=== PATIENT | female | born 1985 | race African-American/Black ===

== ENCOUNTER 2017-10-20 10:31 | Emergency (ER) | payer SELFPAY ==
[2017-10-20 10:47] VITALS: TEMP 98.2; BMI 29.2
[2017-10-20] MEDS ORDERED: ACETAMINOPHEN 1000 MG/100 ML VIAL (NON FORMULARY) IVPB ONE (13:03)
[2017-10-20] MEDS ORDERED: SODIUM CHLORIDE 1,000 ML IV STA (13:03)
[2017-10-20] MEDS ORDERED: ACETAMINOPHEN INJECTION 100 ML IVPB ONE (13:08)
[2017-10-20 13:14] LABS: URINE APPEARANCE SLCLOUDY; URINE BILIRUBIN NEGATIVE (NEGATIVE); URINE BLOOD NEGATIVE (NEGATIVE); URINE COLOR LTYELLOW; URINE GLUCOSE (UA) NEGATIVE (NEGATIVE); URINE KETONE NEGATIVE (NEGATIVE); URINE NITRITE NEGATIVE (NEGATIVE); URINE PROTEIN NEGATIVE (NEGATIVE); URINE UROBILINOGEN NEGATIVE mg/dL (0.2-1.0)
[2017-10-20 13:30] LABS: BASOPHIL 0.8 % (0-2.0); MCH 29.3 pg (25.7-33.7); MCHC 33.2 g/dl (32.0-36.0); MEAN CELL VOLUME 88.2 fl (80-96); MEAN PLT VOLUME 8.5 fl (7.5-11.1); NEUTROPHILS 63.6 % (42.8-82.8); PLATELET COUNT 270 K/MM3 (134-434); RDW 14.8 % (11.6-15.6)
[2017-10-20 13:56] LABS: ALBUMIN 4.1 g/dl (3.4-5.0); ANION GAP 7 (8-16); BILIRUBIN,TOTAL 0.4 mg/dL (0.2-1.0); CALCIUM 8.9 mg/dL (8.5-10.1); CO2 29 mmol/L (21-32); CREATININE 0.7 mg/dL (0.55-1.02); GLUCOSE,RANDOM 87 mg/dL (74-106); SGOT/AST 9 U/L (15-37); SGPT/ALT 15 U/L (12-78); TOT PROT 7.8 g/dl (6.4-8.2)
[2017-10-20 13:57] LABS: ALK PHOS 125 U/L (45-117)
[2017-10-20] MEDS ORDERED: KETOROLAC TROMETHAMINE 30 MG/1 ML VIAL IVPUSH ONE (14:26)
--- NOTE | 2017-10-20 14:26 | PDOC ---
History of Present Illness - General History Source: Patient Exam Limitations: No Limitations <Erick Gutiérrez - Last Filed: 10/20/17 14:29> - History of Present Illness Initial Comments: 10/20/17 14:38 32 year old female , with significant past medical history of recurrent pulmonary emboli (most recent was 11 months ago, pt reports noncompliance with Coumadin over the past week), abdominal hernia, asthma, anemia and sickle cell trait, who presents to the emergency room complaining of suprapubic pain and nausea that started yesterday. She notes that the pain is crampy in quality. She does not know the exact day of her LMP, but states that it was last month. Denies vaginal bleeding, discharge, foul odor. Denies chest pain, SOB. Denies diarrhea, recent illness. Allergies: NKDA, orange juice Surgical hx: 4C-sections <Daria Enamorado - Last Filed: 10/20/17 14:39> - General Chief Complaint: Pain Stated Complaint: ABD PAIN, NAUSEA Time Seen by Provider: 10/20/17 12:29 Past History - Past Medical History Asthma: Yes COPD: No Other medical history: PE, SICKLE CELL TRAIT - Reproductive History Is Patient Now?: (unsure) Para: 5 - Suicide/Smoking/Psychosocial Hx Smoking History: Never smoked Information on smoking cessation initiated: No Hx Alcohol Use: No Drug/Substance Use Hx: No Substance Use Type: None <Erick Gutiérrez - Last Filed: 10/20/17 14:29> <Daria Enamorado - Last Filed: 10/20/17 14:39> - Past Medical History Allergies/Adverse Reactions: Allergies Allergy/AdvReac Type Severity Reaction Status Date / Time orange juice Allergy Verified 10/20/17 10:47 Home Medications: Ambulatory Orders Ibuprofen [Motrin -] 600 mg PO QID PRN #28 tablet 10/20/17 Warfarin Sodium [Coumadin] 5 mg PO DAILY 10/20/17 Review of Systems - Review of Systems Able to Perform ROS?: Yes Comments:: 10/20/17 14:38 GENERAL/CONSTITUTIONAL: No fever or chills. No weakness. HEAD, EYES, EARS, NOSE AND THROAT: No change in vision. No ear pain or discharge. No sore throat. CARDIOVASCULAR: No chest pain or shortness of breath. RESPIRATORY: No cough, wheezing, or hemoptysis. GASTROINTESTINAL: +subprapubic pain and nausea. No vomiting, diarrhea or constipation. GENITOURINARY: No dysuria, frequency, or change in urination. MUSCULOSKELETAL: No joint or muscle swelling or pain. No neck or back pain. SKIN: No rash NEUROLOGIC: No headache, vertigo, loss of consciousness, or change in strength/ sensation. ENDOCRINE: No increased thirst. No abnormal weight change. HEMATOLOGIC/LYMPHATIC: No anemia, easy bleeding, or history of blood clots. ALLERGIC/IMMUNOLOGIC: No hives or skin allergy. <Daria Enamorado - Last Filed: 10/20/17 14:39> *Physical Exam - Vital Signs Last Vital Signs Temp Pulse Resp BP Pulse Ox 98.2 F 77 19 119/79 98 10/20/17 10:45 10/20/17 10:45 10/20/17 10:45 10/20/17 10:45 10/20/17 10:45 <Erick Gutiérrez - Last Filed: 10/20/17 14:29> - Vital Signs Last Vital Signs Temp Pulse Resp BP Pulse Ox 98.2 F 77 19 119/79 98 10/20/17 10:45 10/20/17 10:45 10/20/17 10:45 10/20/17 10:45 10/20/17 10:45 - Physical Exam Comments: 10/20/17 14:39 GENERAL: Awake, alert, and fully oriented, in no acute distress HEAD: No signs of trauma EYES: PERRLA, EOMI, sclera anicteric, conjunctiva clear ENT: Auricles normal inspection, hearing grossly normal, nares patent, oropharynx clear without exudates. Moist mucosa NECK: Normal ROM, supple, no lymphadenopathy, JVD, or masses LUNGS: Breath sounds equal, clear to auscultation bilaterally. No wheezes, and no crackles HEART: Regular rate and rhythm, normal S1 and S2, no murmurs, rubs or gallops ABDOMEN: Soft, nontender, normoactive bowel sounds. No guarding, no rebound. No masses EXTREMITIES: Normal range of motion, no edema. No clubbing or cyanosis. No cords, erythema, or tenderness NEUROLOGICAL: Cranial nerves II through XII grossly intact. Normal speech, normal gait SKIN: Warm, Dry, normal turgor, no rashes or lesions noted. <Daria Enamorado - Last Filed: 10/20/17 14:39> ED Treatment Course - LABORATORY CBC & Chemistry Diagram: 10/20/17 13:20 10/20/17 13:20 - ADDITIONAL ORDERS Additional order review: Laboratory Results 10/20/17 10/20/17 13:20 13:00 Sodium 142 Potassium 4.0 Chloride 106 Carbon Dioxide 29 Anion Gap 7 L BUN 11 Creatinine 0.7 Creat Clearance w eGFR > 60 Random Glucose 87 Calcium 8.9 Total Bilirubin 0.4 AST 9 L D ALT 15 D Alkaline Phosphatase 125 H D Total Protein 7.8 Albumin 4.1 Lipase 112 Urine Color Ltyellow Urine Appearance Slcloudy Urine pH 5.0 D Ur Specific [place] 1.012 Urine Protein Negative Urine Glucose (UA) Negative Urine Ketones Negative Urine Blood Negative Urine Nitrite Negative Urine Bilirubin Negative Urine Urobilinogen Negative Urine HCG, Qual Negative 10/20/17 13:20 RBC 4.23 MCV 88.2 MCHC 33.2 RDW 14.8 MPV 8.5 Neutrophils % 63.6 Lymphocytes % 28.7 D Monocytes % 4.9 Eosinophils % 2.0 Basophils % 0.8 - Medications Given in the ED: ED Medications Discontinued Medications Generic Name Dose Route Start Last Admin Trade Name Ez PRN Reason Stop Dose Admin Acetaminophen 1,000 mg 10/20/17 13:03 10/20/17 13:24 Ofirmev Injection - IVPB 10/20/17 13:04 1,000 mg ONCE ONE Administration Sodium Chloride 1,000 mls @ 1,000 mls/hr 10/20/17 13:03 10/20/17 13:24 Normal Saline - IV 10/20/17 14:02 1,000 mls/hr ASDIR STA Administration <Erick Gutiérrez - Last Filed: 10/20/17 14:29> - LABORATORY CBC & Chemistry Diagram: 10/20/17 13:20 10/20/17 13:20 - ADDITIONAL ORDERS Additional order review: Laboratory Results 10/20/17 10/20/17 13:20 13:00 Sodium 142 Potassium 4.0 Chloride 106 Carbon Dioxide 29 Anion Gap 7 L BUN 11 Creatinine 0.7 Creat Clearance w eGFR > 60 Random Glucose 87 Calcium 8.9 Total Bilirubin 0.4 AST 9 L D ALT 15 D Alkaline Phosphatase 125 H D Total Protein 7.8 Albumin 4.1 Lipase 112 Urine Color Ltyellow Urine Appearance Slcloudy Urine pH 5.0 D Ur Specific [place] 1.012 Urine Protein Negative Urine Glucose (UA) Negative Urine Ketones Negative Urine Blood Negative Urine Nitrite Negative Urine Bilirubin Negative Urine Urobilinogen Negative Urine HCG, Qual Negative 10/20/17 13:20 RBC 4.23 MCV 88.2 MCHC 33.2 RDW 14.8 MPV 8.5 Neutrophils % 63.6 Lymphocytes % 28.7 D Monocytes % 4.9 Eosinophils % 2.0 Basophils % 0.8 - Medications Given in the ED: ED Medications Discontinued Medications Generic Name Dose Route Start Last Admin Trade Name Freq PRN Reason Stop Dose Admin Acetaminophen 1,000 mg 10/20/17 13:03 10/20/17 13:24 Ofirmev Injection - IVPB 10/20/17 13:04 1,000 mg ONCE ONE Administration Sodium Chloride 1,000 mls @ 1,000 mls/hr 10/20/17 13:03 10/20/17 13:24 Normal Saline - IV 10/20/17 14:02 1,000 mls/hr ASDIR STA Administration <Daria Enamorado - Last Filed: 10/20/17 14:39> Medical Decision Making - Medical Decision Making 10/20/17 14:20 A portion of this note was documented by scribe services under my direction. I have reviewed the details of the note, within reason, and agree with the documentation with the following case summary and management plan written by me. Patient treated in the ED. Nursing notes are reviewed and incorporated into the medical decision-making. Vital signs reviewed. Peripheral IV access obtained by the nurse, laboratory studies are drawn and sent, reviewed and interpreted by myself. Vital Signs Temp Pulse Resp BP Pulse Ox 98.2 F 77 19 119/79 98 10/20/17 10:45 10/20/17 10:45 10/20/17 10:45 10/20/17 10:45 10/20/17 10:45 32-year-old female with past medical history of pulmonary embolism intermittently adherent to her Coumadin presents with abdominal pain since yesterday. The patient reports that her pulmonary embolus and history is complicated. States that when she is , she has developed recurrent pulmonary I will was observed DVTs. She has been on intermittent heparin and Lovenox. States has been intermittently adherent to Coumadin. States since yesterday she has been having a vague suprapubic discomfort but without dysuria , nausea, vomiting, fevers, chills. Has tolerated by mouth. CBC, BMP 10/20/17 13:20 10/20/17 13:20 CMP Sodium 142 mmol/L (136-145) 10/20/17 13:20 Potassium 4.0 mmol/L (3.5-5.1) 10/20/17 13:20 Chloride 106 mmol/L (98-107) 10/20/17 13:20 Carbon Dioxide 29 mmol/L (21-32) 10/20/17 13:20 Anion Gap 7 (8-16) L 10/20/17 13:20 BUN 11 mg/dL (7-18) 10/20/17 13:20 Creatinine 0.7 mg/dL (0.55-1.02) 10/20/17 13:20 Creat Clearance w eGFR > 60 (>60) 10/20/17 13:20 Random Glucose 87 mg/dL (74-106) 10/20/17 13:20 Calcium 8.9 mg/dL (8.5-10.1) 10/20/17 13:20 Total Bilirubin 0.4 mg/dL (0.2-1.0) 10/20/17 13:20 AST 9 U/L (15-37) L D 10/20/17 13:20 ALT 15 U/L (12-78) D 10/20/17 13:20 Alkaline Phosphatase 125 U/L (45-117) H D 10/20/17 13:20 Total Protein 7.8 g/dl (6.4-8.2) 10/20/17 13:20 Albumin 4.1 g/dl (3.4-5.0) 10/20/17 13:20 Lipase 112 U/L (73-393) 10/20/17 13:20 Urine Test Results Urine Color Ltyellow 10/20/17 13:00 Urine Appearance Slcloudy 10/20/17 13:00 Urine pH 5.0 (5.0-8.0) D 10/20/17 13:00 Ur Specific [place] 1.012 (1.001-1.035) 10/20/17 13:00 Urine Protein Negative (NEGATIVE) 10/20/17 13:00 Urine Glucose (UA) Negative (NEGATIVE) 10/20/17 13:00 Urine Ketones Negative (NEGATIVE) 10/20/17 13:00 Urine Blood Negative (NEGATIVE) 10/20/17 13:00 Urine Nitrite Negative (NEGATIVE) 10/20/17 13:00 Urine Bilirubin Negative (NEGATIVE) 10/20/17 13:00 Preliminary leukocyte esterase: negative It is unclear what the etiology abdominal pain is. Upon reassessment after the blood tests, the patient has no abdominal tenderness. I do not think that this is an ovarian torsion. I do not think this is appendicitis or bowel obstruction. It is possible that this may be an ovarian cyst. However, I will refer the patient to an outpatient manager of product for outpatient workup. I gave her return precautions if symptoms worsen. I discussed the physical exam findings, ancillary test results and final diagnoses with the patient. I answered all of the patient's questions. The patient was satisfied with the care received and felt comfortable with the discharge plan and treatment plan. The patient will call their primary care physician within 24 hours to arrange follow-up and will return to the Emergency Department with any new, persistant or worsening symptoms. <Erick Gutiérrez - Last Filed: 10/20/17 14:29> *DC/Admit/Observation/Transfer - Discharge Dispostion Admit: No <Erick Gutiérrez - Last Filed: 10/20/17 14:29> - Attestations Scribe Attestion: 10/20/17 14:39 Documentation prepared by MARIA DE JESUS Hay, acting as medical affairs specialist for Erick Gutiérrez MD. <Daria Enamorado - Last Filed: 10/20/17 14:39> Diagnosis at time of Disposition: Abdominal pain Qualifiers: Abdominal location: unspecified location Qualified Code(s): R10.9 - Unspecified abdominal pain - Discharge Dispostion Disposition: HOME Condition at time of disposition: Improved - Prescriptions Prescriptions: Ibuprofen [Motrin -] 600 mg PO QID PRN #28 tablet PRN Reason: Pain - Referrals Referrals: Jd Vang MD [Staff Physician] - Aleisha Yoder MD [Staff Physician] - Andrews Chadwick MD [Staff Physician] - Alistair Valencia MD [Staff Physician] - - Patient Instructions Printed Discharge Instructions: DI for Abdominal Pain-Adult Additional Instructions: Please follow up with your doctors. Make an appointment with an back tender insulation board doctor. Call to schedule an appointment.
[2017-10-20] MEDS ORDERED: KETOROLAC TROMETHAMINE 30 MG/1 ML VIAL ONE (14:39)
[2017-10-20 14:51] VITALS: BP 118/72; PULSE 68
[2017-10-20 16:45] LABS: URINE LEUK ESTERASE Negative (NEGATIVE)
== END 2017-10-20 14:52 | disposition home or self-care (01) ==
LOC: JER 10:31
PROC: 3E033NZ Introduction of Analgesics, Hypnotics, Sedatives into Peripheral Vein, Percutaneous Approach (ICD-10-PCS; principal; 2017-10-20)
PROC: 3E0333Z Introduction of Anti-inflammatory into Peripheral Vein, Percutaneous Approach (ICD-10-PCS; 2017-10-20)
DX: R10.9 Unspecified abdominal pain (principal); J45.909 Unspecified asthma, uncomplicated; D57.3 Sickle-cell trait
CPT/HCPCS: 36415; 80053; 81003; 83690; 84703; 85025; 87086; 99282-25

== ENCOUNTER 2017-10-27 20:48 | Emergency (ER) | payer OTHER ==
[2017-10-27 21:00] VITALS: BMI 29.2
[2017-10-27 21:12] LABS: URINE APPEARANCE SLCLOUDY; URINE BILIRUBIN NEGATIVE (NEGATIVE); URINE BLOOD NEGATIVE (NEGATIVE); URINE COLOR LTYELLOW; URINE GLUCOSE (UA) NEGATIVE (NEGATIVE); URINE KETONE NEGATIVE (NEGATIVE); URINE NITRITE NEGATIVE (NEGATIVE); URINE PROTEIN NEGATIVE (NEGATIVE)
--- NOTE | 2017-10-27 23:20 | PDOC ---
History of Present Illness - General Chief Complaint: Pain Stated Complaint: LOWER ABD PAIN Time Seen by Provider: 10/27/17 23:20 - History of Present Illness Initial Comments: 10/28/17 00:55 Ms. Andrade is a 32 yo w/ significant pmh of recurrent PE (most recent 11 months ago) on coumadin (which she often forgets to take), abdominal hernia, asthma, anemia, and sickle cell trait who presents complaining of suprapubic pain and nausea since thanksgi. She reports that this pain comes and goes and cannot relate it to any food, stress, or any other factor. She reports that her LMP was last month. She had previously presented for this same complaint on the of last month but says that her PCP told her to return if she was having continued symptoms. She denies vaginal bleeding, discharge, foul odor, chest pain, shortness of breath diarrhea, and fevers/chills. Past History - Past Medical History Allergies/Adverse Reactions: Allergies Allergy/AdvReac Type Severity Reaction Status Date / Time orange juice Allergy Verified 10/27/17 20:58 Home Medications: Ambulatory Orders Warfarin Sodium [Coumadin] 5 mg PO DAILY 10/20/17 Anemia: Yes (sickle cell trait) Asthma: Yes COPD: No Other medical history: pulmonary embolism /2015 - Reproductive History Para: 5 - Suicide/Smoking/Psychosocial Hx Smoking History: Never smoked Hx Alcohol Use: No Drug/Substance Use Hx: No Substance Use Type: None Review of Systems - Review of Systems Comments:: 10/28/17 00:53 GENERAL/CONSTITUTIONAL: No fever or chills. No weakness. HEAD, EYES, EARS, NOSE AND THROAT: No change in vision. No ear pain or discharge. No sore throat. CARDIOVASCULAR: No chest pain or shortness of breath RESPIRATORY: No cough, wheezing, or hemoptysis. GASTROINTESTINAL: No nausea, vomiting, diarrhea or constipation. GENITOURINARY: Pain as described suprapubic region. MUSCULOSKELETAL: No joint or muscle swelling or pain. No neck or back pain. SKIN: No rash NEUROLOGIC: No headache, vertigo, loss of consciousness, or change in strength/ sensation. ENDOCRINE: No increased thirst. No abnormal weight change HEMATOLOGIC/LYMPHATIC: No anemia, easy bleeding, or history of blood clots. ALLERGIC/IMMUNOLOGIC: No hives or skin allergy. *Physical Exam - Vital Signs Last Vital Signs Temp Pulse Resp BP Pulse Ox 98.1 F 65 18 119/83 100 10/27/17 20:58 10/27/17 20:58 10/27/17 20:58 10/27/17 20:58 10/27/17 20:58 - Physical Exam Comments: 10/28/17 00:58 GENERAL: Awake, alert, and fully oriented, in no acute distress HEAD: No signs of trauma, normocephalic, atraumatic EYES: PERRLA, EOMI, sclera anicteric, conjunctiva clear ENT: Auricles normal inspection, hearing grossly normal, nares patent, oropharynx clear without exudates. Moist mucosa NECK: Normal ROM, supple, no lymphadenopathy, JVD, or masses LUNGS: No distress, speaks full sentences, clear to auscultation bilaterally HEART: Regular rate and rhythm, normal S1 and S2, no murmurs, rubs or gallops, peripheral pulses normal and equal bilaterally. ABDOMEN: Soft, nontender, normoactive bowel sounds. No guarding, no rebound. No masses EXTREMITIES: Normal inspection, Normal range of motion, no edema. No clubbing or cyanosis. NEUROLOGICAL: Cranial nerves II through XII grossly intact. Normal speech, normal gait, no focal sensorimotor deficits SKIN: Warm, Dry, normal turgor, no rashes or lesions noted. : Yeast infection noted on exam. No CMT, masses, or adnexal tenderness. ED Treatment Course - LABORATORY CBC & Chemistry Diagram: 10/28/17 00:52 10/28/17 00:52 - ADDITIONAL ORDERS Additional order review: Laboratory Results 10/27/17 21:05 Urine Color Ltyellow Urine Appearance Slcloudy Urine pH 6.0 Ur Specific [place] 1.010 Urine Protein Negative Urine Glucose (UA) Negative Urine Ketones Negative Urine Blood Negative Urine Nitrite Negative Urine Bilirubin Negative Urine Urobilinogen 2.0 H Urine HCG, Qual Negative Medical Decision Making - Medical Decision Making 10/28/17 02:29 Ms. Andrade represents for vague symptoms of intermittent pelvic pain. Labs grossly wnl, pelvic exam revealed yeast infection (treated with diflucan in ER) . Pelvic US negative for acute findings. Patient instructed to f/u with [facility] for further care. Patient verbalized understanding and will comply. *DC/Admit/Observation/Transfer Diagnosis at time of Disposition: Yeast infection - Discharge Dispostion Disposition: HOME - Referrals Referrals: STAFF,NOT ON [Primary Care Provider] - Aleisha Yoder MD [Staff Physician] - - Patient Instructions Printed Discharge Instructions: DI for Vaginal Yeast Infection Additional Instructions: Please follow-up with [facility] as discussed. Return to ER if any increase in pain , fever, nausea, or other concerning symptoms. - Post Discharge Activity
--- NOTE | 2017-10-27 23:54 | PDOC ---
Attending Attestation - Resident Resident Name: Glenn Martinez - ED Attending Attestation I have performed the following: I have examined & evaluated the patient, The case was reviewed & discussed with the resident, I agree w/resident's findings & plan, Exceptions are as noted - HPI HPI: 10/27/17 23:51 32yo F , DVT c/b PE x3 on coumadin (intermittently compliant), asthma, anemia, sickle cell trait p/w suprapubic pain since thanksgiving. Pain a/w nausea, no vomiting. Pain is intermittent, only midline. Pt was seen here 1 week ago for the same, had a negative UA and negative UPT. Called PCP who
[2017-10-28 00:59] LABS: BASOPHIL 0.8 % (0-2.0); EOSINOPHIL 2.2 % (0-4.5); MCHC 33.9 g/dl (32.0-36.0); MEAN CELL VOLUME 88.5 fl (80-96); MEAN PLT VOLUME 8.5 fl (7.5-11.1); NEUTROPHILS 50.3 % (42.8-82.8); PLATELET COUNT 260 K/MM3 (134-434); RDW 14.7 % (11.6-15.6); WHITE BLOOD COUNT 8.6 K/mm3 (4.0-10.0)
[2017-10-28 01:24] LABS: ALBUMIN 3.9 g/dl (3.4-5.0); ANION GAP 7 (8-16); BILIRUBIN,TOTAL 0.6 mg/dL (0.2-1.0); CO2 31 mmol/L (21-32); CREATININE 0.9 mg/dL (0.55-1.02); GLUCOSE,RANDOM 81 mg/dL (74-106); SGOT/AST 6 U/L (15-37); SGPT/ALT 16 U/L (12-78); TOT PROT 7.3 g/dl (6.4-8.2)
[2017-10-28 01:25] LABS: ALK PHOS 114 U/L (45-117)
[2017-10-28] MEDS ORDERED: FLUCONAZOLE 100 MG TABLET (UD) PO ONE (02:09)
[2017-10-28] MEDS ORDERED: FLUCONAZOLE 100 MG TABLET (UD) ONE (02:15)
[2017-10-28 03:11] VITALS: BP 120/80; PULSE 80; TEMP 98.2
[2017-10-28 11:13] LABS: URINE LEUK ESTERASE Negative (NEGATIVE)
== END 2017-10-28 03:12 | disposition home or self-care (01) ==
LOC: JER 20:48
DX: B37.9 Candidiasis, unspecified (principal); Z86.711 Personal history of pulmonary embolism; Z79.01 Long term (current) use of anticoagulants; J45.909 Unspecified asthma, uncomplicated; D64.9 Anemia, unspecified; D57.3 Sickle-cell trait
CPT/HCPCS: 36415; 76856-TC; 80053; 81003; 83690; 84703; 85025; 99283-25

== ENCOUNTER 2018-04-10 09:06 | Emergency (ER) | payer OTHER ==
[2018-04-10 09:19] VITALS: TEMP 98.5; BMI 28.0
--- NOTE | 2018-04-10 09:45 | PDOC ---
History of Present Illness - General History Source: Patient Exam Limitations: No Limitations - History of Present Illness Initial Comments: CHIEF COMPLAINT: 32 y/o afebrile female with PMH recurrent UTIs, bacterial vaginosis and yeast infections c/o dysuria and thin vaginal discharge x 1 week. HISTORY OF PRESENT ILLNESS: The patient admits she has had these recurrent infections for years, all with the same sexual partner. Both have been tested numerous times in the past for STDs and are always negative. She states they had sex 1 week ago and since that time she has had symptoms. She denies fever, chills, n/v/d, CP, SOB, back pain. She has seen multiple doctors over the years and nothing seems to help. Vital signs on arrival are within normal limits. REVIEW OF SYSTEMS: GENERAL/CONSTITUTIONAL: no fever/chills. No weakness. No weight change. GASTROINTESTINAL: See history of present illness. GENITOURINARY: +dysuria and thin watery vaginal discharge. MUSCULOSKELETAL: No joint or muscle swelling or pain. No neck or back pain. SKIN: No rash or easy bruising. NEUROLOGIC: No headache, vertigo, loss of consciousness, or loss of sensation. PHYSICAL EXAM: GENERAL: The patient is awake, alert, and fully oriented, in no acute distress. ABDOMEN: Soft, non-distended, minimal suprapubic TTP. VAGINAL: DEFERRED EXTREMITIES: Normal range of motion, no edema. NEUROLOGICAL: Normal speech, normal gait. CN II-XII grossly intact. SKIN: Warm, dry, normal turgor, no rashes or lesions noted. <Norma Humphrey - Last Filed: 04/10/18 11:41> <Aston Naylor - Last Filed: 04/13/18 07:14> - General Chief Complaint: Pain Stated Complaint: LOWER ABD CRAMPING Time Seen by Provider: 04/10/18 09:25 Past History - Past Medical History Anemia: Yes (sickle cell trait) Asthma: Yes COPD: No - Reproductive History Para: 5 - Immunization History Immunization Up to Date: Yes - Suicide/Smoking/Psychosocial Hx Smoking History: Never smoked Hx Alcohol Use: No Drug/Substance Use Hx: No Substance Use Type: None <Norma Humphrey - Last Filed: 04/10/18 11:41> <Aston Naylor - Last Filed: 04/13/18 07:14> - Past Medical History Allergies/Adverse Reactions: Allergies Allergy/AdvReac Type Severity Reaction Status Date / Time orange juice Allergy Verified 04/10/18 09:16 Home Medications: Ambulatory Orders Warfarin Sodium [Coumadin] 5 mg PO DAILY 10/20/17 Fluconazole [Diflucan] 150 mg PO ONCE #1 tablet 04/10/18 Metronidazole 500 mg PO TID #21 tablet 04/10/18 Nitrofurantoin Monohyd/M-Cryst [Macrobid -] 100 mg PO BID #14 capsule 04/10/18 metroNIDAZOLE [Flagyl -] 500 mg PO ASDIR 04/10/18 *Physical Exam - Vital Signs Last Vital Signs Temp Pulse Resp BP Pulse Ox 98.5 F 80 16 112/52 99 04/10/18 09:10 04/10/18 09:10 04/10/18 09:10 04/10/18 09:10 04/10/18 09:10 <Norma Humphrey - Last Filed: 04/10/18 11:41> - Vital Signs Last Vital Signs Temp Pulse Resp BP Pulse Ox 98.5 F 63 16 101/66 100 04/10/18 09:10 04/10/18 11:51 04/10/18 09:10 04/10/18 11:51 04/10/18 11:51 <Aston Naylor - Last Filed: 04/13/18 07:14> Moderate Sedation - Procedure Monitoring Vital Signs: Vital Signs Temp Pulse Resp BP Pulse Ox 98.5 F 63 16 101/66 100 04/10/18 09:10 04/10/18 11:51 04/10/18 09:10 04/10/18 11:51 04/10/18 11:51 <Aston Naylor - Last Filed: 04/13/18 07:14> ED Treatment Course - ADDITIONAL ORDERS Additional order review: 04/10/18 10:43 Urine Culture - Final Urine - Urine Clean Catch Escherichia Coli <Aston Naylor - Last Filed: 04/13/18 07:14> Medical Decision Making - Medical Decision Making A/P: 32 y/o female with symptoms of UTI and BV. Plan is as follows: 1. UA/culture/hcg 2. GC/chlamydia UA 2+ leuks, 105 WBCs Will treat for UTI. Will also treat for BV Will send rx for diflucan as patient admits to normally getting a yeast infection after treating UTI. patient instructed to f/u with her doctor, drink plenty of fluids and take probiotic to help with symptoms. The patient verbalizes understanding of all instructions, has no further questions and is awaiting discharge. <Norma Humphrey - Last Filed: 04/10/18 11:41> - Medical Decision Making 04/13/18 07:10 The patient was seen and evaluated in conjunction with MICHELE Humphrey under my direct supervision, ancillary studies were reviewed. I agree with the plan as outlined by MICHELE Humphrey . <Aston Naylor - Last Filed: 04/13/18 07:14> *DC/Admit/Observation/Transfer <Norma Humphrey - Last Filed: 04/10/18 11:41> <Astno Naylor - Last Filed: 04/13/18 07:14> Diagnosis at time of Disposition: Bacterial vaginosis UTI (urinary tract infection) Qualifiers: Urinary tract infection type: acute cystitis Hematuria presence: with hematuria Qualified Code(s): N30.01 - Acute cystitis with hematuria - Discharge Dispostion Disposition: HOME Condition at time of disposition: Good - Prescriptions Prescriptions: Fluconazole [Diflucan] 150 mg PO ONCE #1 tablet Metronidazole 500 mg PO TID #21 tablet Nitrofurantoin Monohyd/M-Cryst [Macrobid -] 100 mg PO BID #14 capsule - Patient Instructions Printed Discharge Instructions: DI for Urinary Tract Infection (UTI), DI for Bacterial Vaginosis Additional Instructions: Discharge Instructions: -You have a urinary tract infection -You have symptoms of bacteria vaginosis -3 prescriptions have been sent to your pharmacy; one is for a yeast infection, should you develop one -Please drink at least 64oz of water daily -Start eating yogurt with probiotics or take a probiotic supplement to possible help with recurrent infections -Follow up with your doctor in 1 week -Return to the ER with any worsening or concerning symptoms
[2018-04-10 11:10] LABS: URINE APPEARANCE CLEAR; URINE BILIRUBIN NEGATIVE (<2.0 mg/dL); URINE COLOR LTYELLOW; URINE GLUCOSE (UA) NEGATIVE (NEGATIVE); URINE KETONE NEGATIVE (NEGATIVE); URINE NITRITE NEGATIVE (NEGATIVE); URINE PROTEIN NEGATIVE (NEGATIVE); URINE UROBILINOGEN NEGATIVE mg/dL (0.2-1.0)
[2018-04-10 11:14] LABS: HCG,QUALITATIVE URINE NEGATIVE
[2018-04-10 11:24] LABS: URINE LEUK ESTERASE 2+ (NEGATIVE)
[2018-04-10 11:28] LABS: EPI CELLS RARE /HPF (FEW)
[2018-04-10 11:55] VITALS: BP 101/66; PULSE 63
== END 2018-04-10 11:55 | disposition home or self-care (01) ==
LOC: JER 09:06
DX: N76.0 Acute vaginitis (principal); N30.01 Acute cystitis with hematuria; J45.909 Unspecified asthma, uncomplicated
CPT/HCPCS: 36415; 81003; 81015; 84703; 87086; 87186; 87491; 87591; 99282-25

== ENCOUNTER 2018-11-24 23:33 | Emergency (ER) | payer SELFPAY ==
[2018-11-24 23:45] VITALS: BP 106/59; PULSE 71; TEMP 98.7; BMI 30.5
[2018-11-25] MEDS ORDERED: SODIUM CHLORIDE 0.9% 500 ML INFUS.BAG IV ONE (00:39)
[2018-11-25 01:22] LABS: BASO % 0.5 % (0-2.0); EOS % 1.3 % (0-4.5); HEMATOCRIT 31.4 % (32.4-45.2); HEMOGLOBIN 11.1 GM/dL (10.7-15.3); LYMPH % 26.8 % (8-40); MCH 29.9 pg (25.7-33.7); MCHC 35.5 g/dl (32.0-36.0); MEAN CELL VOLUME 84.3 fl (80-96); MEAN PLT VOLUME 8.5 fl (7.5-11.1); NEUT % 66.4 % (42.8-82.8); PLATELET COUNT 320 K/MM3 (134-434); RBC 3.72 M/mm3 (3.60-5.2); RDW 14.7 % (11.6-15.6); WHITE BLOOD COUNT 7.6 K/mm3 (4.0-10.0)
[2018-11-25 01:26] LABS: URINE APPEARANCE CLEAR; URINE BILIRUBIN NEGATIVE (<2.0 mg/dL); URINE COLOR STRAW; URINE GLUCOSE (UA) NEGATIVE (NEGATIVE); URINE KETONE NEGATIVE (NEGATIVE); URINE LEUK ESTERASE NEGATIVE (NEGATIVE); URINE NITRITE NEGATIVE (NEGATIVE); URINE PROTEIN NEGATIVE (NEGATIVE); URINE UROBILINOGEN NEGATIVE mg/dL (0.2-1.0)
[2018-11-25] MEDS ORDERED: KETOROLAC TROMETHAMINE 15 MG/ML VIAL IVPUSH ONE (01:28)
[2018-11-25] MEDS ORDERED: KETOROLAC TROMETHAMINE 15 MG/ML VIAL ONE (01:34)
--- NOTE | 2018-11-25 01:35 | PDOC ---
History of Present Illness - General Chief Complaint: Pain Stated Complaint: ABD PAIN Time Seen by Provider: 11/25/18 00:38 History Source: Patient - History of Present Illness Initial Comments: 11/25/18 01:30 33 YOF with h/o PE not on AC anymore, sickle cell trait presenting with suprapubic AP, Left lower pelvic pain a/w dysuria, urgency and frequency x 3 days. +nausea and dizziness. tolerating PO and fluid intake. no back pain/f/c, vomiting or diarrhea. LMP 1 week ago. sexually active with . Takes ASA for prevention. no tobacco, ETOH or drug use. PSH: . ROS: Constitutional: no fever or chills. HEENT: no headache. +dizziness CVS: no cp or syncope. Resp: no sob. Gastrointestinal: +abdominal pain,+ nausea +pelvic pain. no vomiting or diarrhea. Genitourinary: +pelvic pain, dysuria, urgency, frequency, vaginal discharge; no bleeding MUSCULOSKELETAL: No joint pain and swelling. No neck or back pain. SKIN: no redness or skin changes, no discharge, no rash. No wounds. Hematologic: no easy bruising/bleeding. HEMATOLOGIC/LYMPHATIC: No anemia, easy bruising/bleeding, or history of blood clots. NEUROLOGIC: No headache, dizziness, LOC or altered mental status. No weakness, numbness or tingling. Allergic/Immunologic: no allergies All other systems reviewed and negative, or as documented in HPI. PHYSICAL Exam: General: Well appearing, awake and alert, NAD. HEENT: NCAT, PERRL, EOMI, clear conjunctiva, anicteric, moist mucus membranes, clear oropharynx, no oral lesions.. Neck: neck supple, FROM Resp: CTAB, normal and even respirations, no respiratory distress CVS: RRR, no murmurs, 2+ peripheral pulses throughout, no peripheral edema Abdomen: soft, +suprapubic/LLQ tenderness. no rebound or guarding. No CVAT. + umbilical hernia, reducible and nontender; C section scar in place Female : normal external genitalia, no lesions, white discharge in vaginal vault, no CMT, mild bilateral adnexal tenderness. Smooth and pink cervix, closed. no vulvar erythema or lesions. Back: nontender, normal inspection and ROM. no CVAT. MSK: no edema, PARRA x4, ROM intact. No clubbing or cyanosis. normal bulk and tone. Extremities: no calf tenderness Neuro: alert Skin: warm and well perfused, cap refill <2 sec, normal color 11/25/18 01:54 11/25/18 03:31 Past History - Past Medical History Allergies/Adverse Reactions: Allergies Allergy/AdvReac Type Severity Reaction Status Date / Time orange juice Allergy Verified 11/24/18 23:44 Home Medications: Ambulatory Orders Warfarin Sodium [Coumadin] 5 mg PO DAILY 10/20/17 Fluconazole [Diflucan] 150 mg PO ONCE #1 tablet 04/10/18 Metronidazole 500 mg PO TID #21 tablet 04/10/18 Nitrofurantoin Monohyd/M-Cryst [Macrobid -] 100 mg PO BID #14 capsule 04/10/18 metroNIDAZOLE [Flagyl -] 500 mg PO ASDIR 04/10/18 Cephalexin Monohydrate [Keflex -] 500 mg PO BID #10 capsule 11/25/18 Nystatin/Triamcin [Nystatin-Triamcinolone Cream] 15 gm TP BID #1 cream..g. 11/25 Phenazopyridine HCl [Pyridium -] 100 mg PO BID #6 tablet 11/25/18 Anemia: Yes (sickle cell trait) Asthma: Yes COPD: No - Reproductive History (#): 5 Para: 5 - Immunization History Immunization Up to Date: Yes - Suicide/Smoking/Psychosocial Hx Smoking History: Never smoked Have you smoked in the past 12 months: No Information on smoking cessation initiated: No Hx Alcohol Use: No Drug/Substance Use Hx: No Substance Use Type: None *Physical Exam - Vital Signs Last Vital Signs Temp Pulse Resp BP Pulse Ox 98.7 F 71 18 106/59 L 100 11/24/18 23:41 11/24/18 23:41 11/24/18 23:41 11/24/18 23:41 11/24/18 23:41 Moderate Sedation - Procedure Monitoring Vital Signs: Procedure Monitoring Vital Signs Temperature 98.7 F 11/24/18 23:41 Pulse Rate 71 11/24/18 23:41 Respiratory Rate 18 11/24/18 23:41 Blood Pressure 106/59 L 11/24/18 23:41 O2 Sat by Pulse Oximetry (%) 100 11/24/18 23:41 ED Treatment Course - LABORATORY CBC & Chemistry Diagram: 11/25/18 01:05 11/25/18 01:05 - ADDITIONAL ORDERS Additional order review: 11/25/18 01:05 RBC 3.72 MCV 84.3 MCHC 35.5 RDW 14.7 MPV 8.5 Neutrophils % 66.4 D Lymphocytes % 26.8 D Monocytes % 5.0 Eosinophils % 1.3 Basophils % 0.5 - RADIOLOGY Radiology Studies Ordered: Category Date Time Status PELVIC / BLADDER US [US] Stat Ultrasound 11/25/18 01:27 Ordered - Medications Given in the ED: ED Medications Discontinued Medications Generic Name Dose Route Start Last Admin Trade Name Freq PRN Reason Stop Dose Admin Sodium Chloride 1,000 ml 11/25/18 00:39 11/25/18 01:10 Normal Saline - IV 11/25/18 00:40 1,000 ml ONCE ONE Administration Medical Decision Making - Medical Decision Making 11/25/18 01:35 DDx female abdominal pain: ovarian cyst, ovarian torsion, TOA, UTI, pyelonephritis, Mittelschmerz, electrolyte/metabolic derangements. vulvovaginitis. hpi as documented VS wnl. labs and lytes wnl. UA_neg, urine cx pending however, with dysuria and discharge, treat as suspected fungal vaginitis vs UTI/ clinically. rx nystatin -steroid ointment BID x 5 days, keflex abx for UTI, f/u urine cultures and pyridium for dysuria. otc analgesia as needed for pain. dispo: Pt informed of my clinical impression, treatment recommendations and disposition plan. All questions answered to patient's satisfaction and expressed understanding and comfort with this. Reasons for returning to the ED sooner discussed with the patient otherwise, follow up with primary care physician. At the time of discharge, the patient is alert, clinically improved, tolerating po and verbalizes understanding of instructions. 11/25/18 03:40 *DC/Admit/Observation/Transfer Diagnosis at time of Disposition: Dysuria, Vaginitis - Discharge Dispostion Disposition: HOME Condition at time of disposition: Improved Decision to Admit order: No - Prescriptions Prescriptions: Cephalexin Monohydrate [Keflex -] 500 mg PO BID #10 capsule Nystatin/Triamcin [Nystatin-Triamcinolone Cream] 15 gm TP BID #1 cream..g. Phenazopyridine HCl [Pyridium -] 100 mg PO BID #6 tablet - Referrals Referrals: [facility] [place] [Provider Group] [facility] [Provider Group] Jd Vang MD [Staff Physician] - - Patient Instructions Printed Discharge Instructions: DI for Vaginal Yeast Infection, DI for Dysuria -- Adult, DI for Vaginal Discharge, DI for Vaginal Itching Additional Instructions: Your laboratory / urine results were normal, follow up on urine cultures Follow up with your physician and consultants as instructed, take your medications as instructed including Keflex twice a day x 5 days for possible urinary tract infection. pyridium twice a day for maximum 3 days for urinary pain. also this could be fungal infection with irritation and discharge, you are going to be treated with ointment twice a day x 5 days for candidal infection. that can help with your symptoms you may take motrin as needed, and/or tylenol every 6 hours as needed for the pain. rest and hydration. Return if worsening symptoms including fevers, headache, vomiting, visual or hearing disturbances, abdominal pain, vaginal bleeding and pelvic pain, chest pain, shortness of breath, syncope, dehydration, inability to take things by mouth/vomiting, altered mental status, or worsening concerning symptoms. your medications on discharge include_ side effects may include upset stomach, abdominal pain, vomiting, or diarrhea. do not drink alcohol with your medications. - Post Discharge Activity Forms/Work/School Notes: Back to Work
[2018-11-25 01:42] LABS: ALBUMIN 3.9 g/dl (3.4-5.0); ALK PHOS 100 U/L (45-117); ANION GAP 6 MMOL/L (8-16); BILIRUBIN,TOTAL 0.4 mg/dL (0.2-1); BLOOD UREA NITROGEN 10 mg/dL (7-18); CALCIUM 9.1 mg/dL (8.5-10.1); CHLORIDE 106 mmol/L (98-107); CO2 26 mmol/L (21-32); CREATININE 0.8 mg/dL (0.55-1.3); GLUCOSE,RANDOM 97 mg/dL (74-106); LIPASE 128 U/L (73-393); POTASSIUM 3.7 mmol/L (3.5-5.1); SGOT/AST 17 U/L (15-37); SGPT/ALT 20 U/L (13-61); SODIUM 138 mmol/L (136-145); TOT PROT 7.7 g/dl (6.4-8.2)
[2018-11-25] MEDS ORDERED: CEPHALEXIN MONOHYDRATE 500 MG CAPSULE (UD) PO ONE (03:29)
[2018-11-25] MEDS ORDERED: PHENAZOPYRIDINE HCL 100 MG TABLET (FP) PO ONE (03:30)
[2018-11-25] MEDS ORDERED: CEPHALEXIN MONOHYDRATE 500 MG CAPSULE (UD) ONE (04:27)
== END 2018-11-25 04:43 | disposition home or self-care (01) ==
LOC: JER 23:33
PROC: 3E0333Z Introduction of Anti-inflammatory into Peripheral Vein, Percutaneous Approach (ICD-10-PCS; principal; 2018-11-24)
PROC: 3E0337Z Introduction of Electrolytic and Water Balance Substance into Peripheral Vein, Percutaneous Approach (ICD-10-PCS; 2018-11-24)
DX: R30.0 Dysuria (principal); N76.0 Acute vaginitis; J45.909 Unspecified asthma, uncomplicated
CPT/HCPCS: 36415; 80053; 81003; 83690; 85025; 87086; 87186; 99282-25

== ENCOUNTER 2019-02-21 09:49 | Emergency (ER) | payer OTHER ==
[2019-02-21 10:00] VITALS: TEMP 97.4; BMI 30.2
[2019-02-21] MEDS ORDERED: METOCLOPRAMIDE HCL INJECTION 10 MG/2 ML VIAL IVPUSH ONE (10:50)
[2019-02-21] MEDS ORDERED: ACETAMINOPHEN 1000 MG/100 ML VIAL (NON FORMULARY) IVPB ONE (10:50)
[2019-02-21] MEDS ORDERED: diphenhydrAMINE HCL 25 MG CAPSULE (FP) PO ONE (10:50)
--- NOTE | 2019-02-21 11:00 | PDOC ---
History of Present Illness - General Chief Complaint: Headache Stated Complaint: DIZZINESS Time Seen by Provider: 02/21/19 10:20 History Source: Patient Exam Limitations: No Limitations - History of Present Illness Initial Comments: 02/21/19 10:53 Patient is a 33 y/o female with a history of recurrent UTI's, PE with three pregnancies, sickle cell trait with anemia who presents with head pressure and headache. Patient reports she has been having these symptoms for a month and getting worse for the last two weeks. The episodes come and go and last about an hour. She has tried to take Marco A twice but without relief. She also notes numbness and tingling in her hands with slight pain. She has never had these symptoms before. She denies light or noise causing more discomfort. She denies any change in vision but used to have floaters that have resolved. She denies weakness, trouble urinating, peripheral vision loss, fevers, chills, or any sick contacts. Does not know family history. Has never been in a crises, needed four units of blood with her first . Past History - Past Medical History Allergies/Adverse Reactions: Allergies Allergy/AdvReac Type Severity Reaction Status Date / Time orange juice Allergy Verified 02/21/19 10:00 Home Medications: Ambulatory Orders Warfarin Sodium [Coumadin] 5 mg PO DAILY 10/20/17 Fluconazole [Diflucan] 150 mg PO ONCE #1 tablet 04/10/18 Metronidazole 500 mg PO TID #21 tablet 04/10/18 Nitrofurantoin Monohyd/M-Cryst [Macrobid -] 100 mg PO BID #14 capsule 04/10/18 metroNIDAZOLE [Flagyl -] 500 mg PO ASDIR 04/10/18 Cephalexin Monohydrate [Keflex -] 500 mg PO BID #10 capsule 11/25/18 Nystatin/Triamcin [Nystatin-Triamcinolone Cream] 15 gm TP BID #1 cream..g. 11/25 Phenazopyridine HCl [Pyridium -] 100 mg PO BID #6 tablet 11/25/18 Anemia: Yes (sickle cell trait) Asthma: Yes COPD: No Other medical history: Pulmonary emboli x 3 - Reproductive History (#): 5 Para: 5 - Immunization History Immunization Up to Date: Yes - Suicide/Smoking/Psychosocial Hx Smoking History: Never smoked Have you smoked in the past 12 months: No Hx Alcohol Use: No Drug/Substance Use Hx: No Substance Use Type: None Review of Systems - Review of Systems Constitutional: No: Chills, Fever HEENTM: No: Eye Pain Respiratory: No: Cough, Shortness of Breath Cardiac (ROS): No: Chest Pain ABD/GI: No: Abdominal Distended, Diarrhea, Nausea Musculoskeletal: No: Back Pain Neurological: Yes: Headache, Numbness, Tingling *Physical Exam - Vital Signs Last Vital Signs Temp Pulse Resp BP Pulse Ox 97.4 F L 80 18 107/70 99 02/21/19 09:56 02/21/19 09:56 02/21/19 09:56 02/21/19 09:56 02/21/19 09:56 - Physical Exam Comments: 02/21/19 11:28 GENERAL: A&O x3, no acute distress HEENT: EOMI, PEERLA HEART: RRR, no murmurs, rubs, or gallops LUNGS: CTAL B/L ABD: non tender, non distended, NEURO: CN II-XII intact EXTREMITIES: no pitting edema SKIN: no rashes or ulcers noted ED Treatment Course - LABORATORY CBC & Chemistry Diagram: 02/21/19 11:40 02/21/19 11:40 - RADIOLOGY Radiology Studies Ordered: Category Date Time Status HEAD CT WITHOUT CONTRAST [CT] Stat CT Scan 02/21/19 10:48 Ordered Medical Decision Making - Medical Decision Making 02/21/19 11:30 f/u labs, head CT tylenol, reglan, and benadryl for headache 02/21/19 12:17 CBC and CMP WNL 02/21/19 13:47 CT negative for acute bleed or fracture dispo home with neuro follow up *DC/Admit/Observation/Transfer Diagnosis at time of Disposition: Headache Qualifiers: Headache type: unspecified Headache chronicity pattern: acute headache Intractability: not intractable Qualified Code(s): R51 - Headache - Discharge Dispostion Disposition: HOME Condition at time of disposition: Improved - Referrals Referrals: Karan Thao DO [Staff Physician] - Jackie Montez MD [Staff Physician] - Douglas Day MD [Staff Physician] - - Patient Instructions Printed Discharge Instructions: DI for Headache Additional Instructions: You came in to the emergency department for headache and a pressure feeling in your head. We did imaging of your head ( CT) and found everything was normal. We also gave you some mediation to help. If your pain comes back please take tylenol or motrin as needed, do not exceed the maximum dose as stated on the bottle. You should make an appointment with the neurologist to follow up, the referrals will be provided for you. Return to the emergency department with any nausea, vomiting, change in vision, if you feel like you are having the worst headache of your life, cannot control your bladder or bowel movements, chest pain, or shortness of breath. - Post Discharge Activity
[2019-02-21] MEDS ORDERED: METOCLOPRAMIDE HCL INJECTION 10 MG/2 ML VIAL ONE (11:18)
[2019-02-21] MEDS ORDERED: ACETAMINOPHEN INJECTION 100 ML IVPB ONE (11:19)
--- NOTE | 2019-02-21 11:29 | PDOC ---
Attending Attestation - Resident Resident Name: Savanna Martinez - ED Attending Attestation I have performed the following: I have examined & evaluated the patient, The case was reviewed & discussed with the resident, I agree w/resident's findings & plan - HPI HPI: 02/21/19 11:27 33-year-old male with history of UTIs, PE provoked by , no anticoagulation use, sickle cell trait presenting with headache 1 month, increasing in frequency and intensity over 2 weeks. She describes her headache as occipital and frontal, left-sided face associated with squeezing and tightness/spasm, associated with some numbness to the affected areas. No neck pain, fevers, weakness or paresthesias in her extremities. No visual or hearing deficits, gait has been stable without imbalance or instability. No chest pain or shortness of breath or symptoms similar to her PE. Been taking Marco A aspirin without relief. She had previously seen in urgent care in the city where she was Rx'd Naprosyn which her insurance does not cover. She has not taken any other analgesics. Patient denies any potential triggers her stressors though she does admit some stress with her job and boyfriend. Prior history of headaches. Denies any food or environmental precipitants. no smoking drugs or alcohol use, no cannibis use 02/21/19 11:29 - Physicial Exam PE: 02/21/19 11:23 NAD, well appearing, PERRL, EOMI, MMM, nl conjunctiva, anicteric; neck supple. lungs clear, RRR, abdomen soft nontender. PARRA x4, no focal neuro deficits. No peripheral edema. normal color for ethnicity, WWP. Alert, oriented appropriately. CN II-XII grossly intact. Strength prox and distally 5/5 throughout. Sensation grossly intact to light touch. PARRA x4. No cerebellar signs, no dysmetria, Speech clear. 02/21/19 11:26 - Medical Decision Making 02/21/19 11:24 See HPI for details Vital signs reviewed, wnl. ddx. intra cranial mass, tension FLORES, migraine FLORES, electrolyte derangements, metabolic derangements. - no PE or infectious sx. doubt meningitis, no meningeal signs, no fevers or systemic findings - doubt SAH with 1 month history, less likely intra cranial lesion vs CVA, no stroke sx, neuro intact without deficits. Prior notes reviewed, including admissions, discharges and consultations. laboratory results and imaging reviewed, basic labs and lytes wnl, neg preg test. no infectious sx, no urinary sx. ED course - IV reglan/tylenol, benadryl, IVF, reassess. FLORES currently at 10/10 on presentation. - on reassessment, symptoms improved, FLORES down and much improved. c/o mild dizziness, likely medication side effect. - CT head neg for acute pathology - VS rechecked after fluids, normotensive and feels better during ED stay, no acute events. - neuro followup, supportive care, avoid triggers and stressors. Pt to be discharged in stable condition. Patient and family made aware of impression and plan, return precautions discussed (including but not limited to worsening pain or symptoms), fevers, or signs of infection, chest pain, respiratory distress, inability to tolerate oral intake, dehydration, syncope, or neurologic changes). Follow up with PMD and/or neuro specialists as recommended, follow up information provided, take medications as instructed for duration of time. continue with supportive care, avoid triggers and precipitants. All questions answered to patient's satisfaction and expressed understanding and comfort with this. Patient does not suffer from an acute life- threatening medical condition at this time she is safe for outpatient follow- up. 02/21/19 14:21 02/21/19 16:22
[2019-02-21 11:49] LABS: HEMATOCRIT 33.7 % (32.4-45.2); HEMOGLOBIN 10.8 GM/dL (10.7-15.3); MCH 27.8 pg (25.7-33.7); MCHC 32.1 g/dl (32.0-36.0); MEAN CELL VOLUME 86.4 fl (80-96); MEAN PLT VOLUME 9.1 fl (7.5-11.1); PLATELET COUNT 252 K/MM3 (134-434); WHITE BLOOD COUNT 5.4 K/mm3 (4.0-10.0)
[2019-02-21 12:14] LABS: ALBUMIN 3.8 g/dl (3.4-5.0); ALK PHOS 99 U/L (45-117); ANION GAP 4 MMOL/L (8-16); BILIRUBIN,TOTAL 0.4 mg/dL (0.2-1); BLOOD UREA NITROGEN 9 mg/dL (7-18); CALCIUM 8.5 mg/dL (8.5-10.1); CHLORIDE 107 mmol/L (98-107); CO2 29 mmol/L (21-32); CREATININE 0.7 mg/dL (0.55-1.3); GLUCOSE,RANDOM 93 mg/dL (74-106); POTASSIUM 3.8 mmol/L (3.5-5.1); SGOT/AST 9 U/L (15-37); SGPT/ALT 14 U/L (13-61); SODIUM 140 mmol/L (136-145); TOT PROT 7.4 g/dl (6.4-8.2)
[2019-02-21] MEDS ORDERED: SODIUM CHLORIDE 1,000 ML IV STA (14:24)
[2019-02-21 16:23] VITALS: BP 106/70; PULSE 78
== END 2019-02-21 16:37 | disposition home or self-care (01) ==
LOC: JER 09:49
PROC: 3E0337Z Introduction of Electrolytic and Water Balance Substance into Peripheral Vein, Percutaneous Approach (ICD-10-PCS; principal; 2019-02-21)
PROC: 3E033NZ Introduction of Analgesics, Hypnotics, Sedatives into Peripheral Vein, Percutaneous Approach (ICD-10-PCS; 2019-02-21)
PROC: 3E033GC Introduction of Other Therapeutic Substance into Peripheral Vein, Percutaneous Approach (ICD-10-PCS; 2019-02-21)
PROC: 3E033GC Introduction of Other Therapeutic Substance into Peripheral Vein, Percutaneous Approach (ICD-10-PCS; 2019-02-21)
DX: R51 Headache (principal); D57.3 Sickle-cell trait; Z86.711 Personal history of pulmonary embolism; Z87.440 Personal history of urinary (tract) infections
CPT/HCPCS: 36415; 70450-TC; 80053; 84703; 85027; 96361; 96374; 96375; 99282-25; J0131; J7030

== ENCOUNTER 2019-05-03 13:33 | Emergency (ER) | payer OTHER ==
[2019-05-03 13:41] VITALS: BP 106/71; PULSE 70; TEMP 98.6; BMI 30.2
--- NOTE | 2019-05-03 13:42 | PDOC ---
Rapid Medical Evaluation Chief Complaint: Injury Time Seen by Provider: 05/03/19 13:39 Medical Evaluation: Allergies Allergy/AdvReac Type Severity Reaction Status Date / Time orange juice Allergy Verified 02/21/19 10:00 05/03/19 13:40 This patient had brief in-person examination cc:laceration by spatula today on left 3rd digit unknown tetanus status PE:NAD unlabored breathing bandaid on left 3rd digit Orders:tetanus vaccine This patient will proceed to ed for further evaluation Discharge Disposition - Diagnosis Laceration - Referrals - Patient Instructions - Post Discharge Activity
[2019-05-03] MEDS ORDERED: DIPHTH,PERTUSS(ACELL),TET 0.5 ML DISP.SYRIN IM ONE ×2 (14:09→14:10)
[2019-05-03] MEDS ORDERED: IBUPROFEN 400 MG TABLET (FP) PO ONE ×2 (14:09→14:10)
--- NOTE | 2019-05-03 14:11 | PDOC ---
History of Present Illness - General Chief Complaint: Injury Stated Complaint: LT HAND INJURY Time Seen by Provider: 05/03/19 13:39 History Source: Patient (left middle finger pain and laceration) Past History - Travel Traveled outside of the country in the last 30 days: No Close contact w/someone who was outside of country & ill: No - Past Medical History Allergies/Adverse Reactions: Allergies Allergy/AdvReac Type Severity Reaction Status Date / Time orange juice Allergy Verified 05/03/19 13:41 Home Medications: Ambulatory Orders NK [No Known Home Medication] 05/03/19 Anemia: Yes (sickle cell trait) Asthma: Yes COPD: No Other medical history: dvt - Reproductive History (#): 5 Para: 5 - Immunization History Immunization Up to Date: Yes - Suicide/Smoking/Psychosocial Hx Smoking History: Never smoked Have you smoked in the past 12 months: No Information on smoking cessation initiated: No Hx Alcohol Use: No Drug/Substance Use Hx: No Substance Use Type: None Review of Systems - Review of Systems Constitutional: No: Chills, Fever Musculoskeletal: Yes: Joint Pain (left 3rd finger). No: Joint Swelling, Muscle Pain, Muscle Weakness *Physical Exam - Vital Signs Last Vital Signs Temp Pulse Resp BP Pulse Ox 98.6 F 70 18 106/71 100 05/03/19 13:39 05/03/19 13:39 05/03/19 13:39 05/03/19 13:39 05/03/19 13:39 - Physical Exam General Appearance: Yes: Nourished Extremity: positive: Normal Capillary Refill, Normal Inspection, Normal Range of Motion, Other (L middle finger: 0.5cm superfical laceration noted in lateral aspect of finger shaft, no active bleeding, no obvious deformity, FROM, sensation intact) Neurologic: positive: general teller II-XII NML intact, Fully Oriented, Alert, Normal Mood/ Affect, Normal Response, Motor Strength 5/5 Medical Decision Making - Medical Decision Making 05/03/19 14:10 L middle finger laceration sustained while using a spatula device to open a box today pt sustained a superficial lac to distal aspect of left middle finger, no active bleeding, unknown of last tetanus tetatus updated very superficial laceration, 0.5cm, no edges to approximate, wound cleanse dermbond applied motrin prn pain 06/10/19 16:55 *DC/Admit/Observation/Transfer Diagnosis at time of Disposition: Laceration - Discharge Dispostion Disposition: HOME Condition at time of disposition: Stable Decision to Admit order: No - Referrals - Patient Instructions Printed Discharge Instructions: DI for Laceration Repair With Dermabond Additional Instructions: Keep finger dry take Motrin or Tylenol for pain return to the ER if worsening symptoms like redness, swelling, warmth occurs - Post Discharge Activity Forms/Work/School Notes: Back to Work
== END 2019-05-03 14:44 | disposition home or self-care (01) ==
LOC: JERFT 13:33
PROC: 3E0234Z Introduction of Serum, Toxoid and Vaccine into Muscle, Percutaneous Approach (ICD-10-PCS; principal; 2019-05-03)
PROC: 0HQGXZZ Repair Left Hand Skin, External Approach (ICD-10-PCS; 2019-05-03)
DX: S61.213A Laceration without foreign body of left middle finger without damage to nail, initial encounter (principal); W27.4XXA Contact with kitchen utensil, initial encounter; Y93.89 Activity, other specified; Y92.038 Other place in apartment as the place of occurrence of the external cause; Y99.8 Other external cause status
CPT/HCPCS: 12001-25; 90471; 90715; 99281-25

== ENCOUNTER 2019-06-17 15:56 | Emergency (ER) | payer OTHER ==
--- NOTE | 2019-06-17 16:11 | PDOC ---
Rapid Medical Evaluation Chief Complaint: Allergic Reaction Time Seen by Provider: 06/17/19 16:07 Medical Evaluation: Allergies Allergy/AdvReac Type Severity Reaction Status Date / Time orange juice Allergy Verified 05/03/19 13:41 06/17/19 16:10 Pt c/o: swelling to upper right eyelid while at work at [employer]. Was using testers at that time, no other complaints (itching) Pt on brief exam: noted mild upper inner eyelid swelling Pt ordered for: none Pt to proceed to the ED Discharge Disposition - Diagnosis Swelling of eyelid Qualifiers: Laterality: right Qualified Code(s): H02.843 - Edema of right eye, unspecified eyelid - Discharge Dispostion Disposition: HOME Condition at time of disposition: Stable - Prescriptions Prescriptions: Erythromycin 0.5% Eye Ointment [Erythromycin 0.5% Eye Ointment -] 1 applic OD TID 7 Days #1 tube Loratadine 10 mg PO ACDIN 10 Days #10 tablet Olopatadine HCl [Pataday] 2.5 ml OP ACDIN 7 Days #1 bottle - Referrals - Patient Instructions Printed Discharge Instructions: DI for Eye Allergic Reaction Additional Instructions: You likely has an allergic reaction please use medications a prescribed Apply cold compress to eye return to the ER If worsening symptoms occurs. - Post Discharge Activity Work/School Note: Back to Work
[2019-06-17 16:16] VITALS: BP 98/68; PULSE 67; BMI 27.4
[2019-06-17] MEDS ORDERED: LORATADINE 10 MG TABLET PO ONE (16:22)
--- NOTE | 2019-06-17 16:28 | PDOC ---
History of Present Illness - General Chief Complaint: Allergic Reaction Stated Complaint: LT EYE INJURY Time Seen by Provider: 06/17/19 16:07 History Source: Patient Exam Limitations: No Limitations (R upper lid swelling ) - History of Present Illness Timing/Duration: unsure Associated Symptoms: denies: fever/chills, headaches, nausea/vomiting, rash Past History - Travel Traveled outside of the country in the last 30 days: No Close contact w/someone who was outside of country & ill: No - Past Medical History Allergies/Adverse Reactions: Allergies Allergy/AdvReac Type Severity Reaction Status Date / Time orange juice Allergy Verified 05/03/19 13:41 Home Medications: Ambulatory Orders Erythromycin 0.5% Eye Ointment [Erythromycin 0.5% Eye Ointment -] 1 applic OS TID 7 Days #1 tube 06/17/19 Loratadine 10 mg PO ACDIN 10 Days #10 capsule 06/17/19 Olopatadine HCl [Pataday] 2.5 ml OP ACDIN 30 Days #1 bottle 06/17/19 Anemia: Yes (sickle cell trait) Asthma: Yes COPD: No - Reproductive History (#): 5 Para: 5 - Immunization History Immunization Up to Date: Yes - Suicide/Smoking/Psychosocial Hx Smoking History: Never smoked Have you smoked in the past 12 months: No Information on smoking cessation initiated: No Hx Alcohol Use: No Drug/Substance Use Hx: No Substance Use Type: None Review of Systems - Review of Systems Is the patient limited Divehi proficient: No Constitutional: No: Chills, Fever HEENTM: Yes: Other (right upper eye swelilng). No: Eye Pain, Blurred Vision, Tearing, Recent change in vision, Double Vision, Ear Pain Neurological: No: Headache, Dizziness *Physical Exam - Vital Signs Last Vital Signs Temp Pulse Resp BP Pulse Ox 67 18 98/68 100 06/17/19 16:08 06/17/19 16:08 06/17/19 16:08 06/17/19 16:08 - Physical Exam General Appearance: Yes: Nourished HEENT: positive: EOMI, DANIEL, Other (swelling noted in right upper lid, no erythema,conjuctivae spared.) Respiratory/Chest: positive: Normal Breath Sounds Cardiovascular: positive: Regular Rhythm, Regular Rate, S1, S2 Neurologic: positive: rehab nursing tech II-XII NML intact, Fully Oriented, Alert, Normal Response, Motor Strength 5/5 Medical Decision Making - Medical Decision Making 33y/o F with swelling and pruritus to R upper lip X 1hr 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 she does not remember touch facing she starting having some irriationto R upper lid she denies blurred vision, fever, chills or trauma exam with mild swelling to upper lid no evidence of preseptal cellulitis *DC/Admit/Observation/Transfer Diagnosis at time of Disposition: Swelling of eyelid Qualifiers: Laterality: right Qualified Code(s): H02.843 - Edema of right eye, unspecified eyelid - Discharge Dispostion Disposition: HOME Condition at time of disposition: Stable Decision to Admit order: No - Prescriptions Prescriptions: Erythromycin 0.5% Eye Ointment [Erythromycin 0.5% Eye Ointment -] 1 applic OS TID 7 Days #1 tube Loratadine 10 mg PO ACDIN 10 Days #10 capsule Olopatadine HCl [Pataday] 2.5 ml OP ACDIN 30 Days #1 bottle - Referrals - Patient Instructions Printed Discharge Instructions: DI for Eye Allergic Reaction Additional Instructions: You likely has an allergic reaction please use medications a prescribed Apply cold compress to eye return to the ER If worsening symptoms occurs. - Post Discharge Activity
[2019-06-17] MEDS ORDERED: LORATADINE 10 MG TABLET ONE (16:29)
== END 2019-06-17 16:52 | disposition home or self-care (01) ==
LOC: JERFT 15:56
DX: H02.841 Edema of right upper eyelid (principal)
CPT/HCPCS: 99282-25

== ENCOUNTER 2019-08-15 17:50 | Emergency (ER) | payer OTHER ==
[2019-08-15 17:57] VITALS: BMI 30.2
--- NOTE | 2019-08-15 20:06 | PDOC ---
History of Present Illness - General Chief Complaint: Pain Stated Complaint: PAIN Time Seen by Provider: 08/15/19 19:52 - History of Present Illness Initial Comments: 08/15/19 21:25 33 y/o F hx of asthma, pulmonary embolism, sickle cell trait and C-sections X4, presents to the ED with 3days of lower abdominal pain. Pain began suddenly and she describes it as a sharp cramping pain primarily in lower abdomen radiating upwards to her upper abdomen. She took tylenol initially which offered some temporary relief but pain returned soon afterwards. She was well enough to go to work yesterday.She has had about 2 pads worth of vaginal bleeding for the last 2 days which has since stopped. Last bowel movement was this morning.She denies any fevers, chills, nausea,vomiting, bloody stool, dysuria, urinary frequency/urgency or vaginal discharge, diarrhea.LMP was in June. 08/15/19 21:43 08/16/19 05:21 Past History - Past Medical History Allergies/Adverse Reactions: Allergies Allergy/AdvReac Type Severity Reaction Status Date / Time orange juice Allergy Verified 08/15/19 17:56 Home Medications: Ambulatory Orders Erythromycin 0.5% Eye Ointment [Erythromycin 0.5% Eye Ointment -] 1 applic OD TID 7 Days #1 tube 06/17/19 Loratadine 10 mg PO ACDIN 10 Days #10 tablet 06/17/19 Olopatadine HCl [Pataday] 2.5 ml OP ACDIN 7 Days #1 bottle 06/17/19 Naproxen 500 mg PO BID 5 Days #10 tablet 08/16/19 Anemia: Yes (sickle cell trait) Asthma: Yes COPD: No Other medical history: Pumonary Embolism - Reproductive History (#): 5 Para: 5 - Immunization History Immunization Up to Date: Yes - Suicide/Smoking/Psychosocial Hx Smoking History: Never smoked Have you smoked in the past 12 months: No Hx Alcohol Use: No Drug/Substance Use Hx: No Substance Use Type: None Review of Systems - Review of Systems Constitutional: No: Chills, Fever HEENTM: No: Eye Pain, Blurred Vision Respiratory: No: Cough, Shortness of Breath Cardiac (ROS): No: Chest Pain ABD/GI: No: Blood Streaked Bowels : No: Burning, Dysuria Musculoskeletal: No: Back Pain Integumentary: No: Bruising Neurological: No: Headache, Numbness *Physical Exam - Vital Signs Last Vital Signs Temp Pulse Resp BP Pulse Ox 98.2 F 80 18 113/75 99 08/15/19 17:53 08/15/19 17:53 08/15/19 17:53 08/15/19 17:53 08/15/19 17:53 - Physical Exam Comments: 08/15/19 21:54 GENERAL: Awake, alert, and fully oriented, in no acute distress HEAD: No signs of trauma, normocephalic, atraumatic EYES: EOMI, sclera anicteric, conjunctiva clear ENT: Auricles normal inspection, hearing grossly normal, nares patent NECK: Normal ROM, supple, no lymphadenopathy, JVD, or masses LUNGS: No distress, speaks full sentences, clear to auscultation bilaterally HEART: Regular rate and rhythm, normal S1 and S2, no murmurs, rubs or gallops, peripheral pulses normal and equal bilaterally. ABDOMEN: Soft, tenderness in LLQ and suprapubically. reducible umbilical hernia , no CVA tenderness. possible diastasis recti EXTREMITIES : Normal inspection, Normal range of motion, no edema. No clubbing or cyanosis NEUROLOGICAL: Cranial nerves II through XII grossly intact. Normal speech, normal gait, no focal sensorimotor deficits SKIN: Warm, Dry, normal turgor, no rashes or lesions noted 08/16/19 05:24 ED Treatment Course - LABORATORY CBC & Chemistry Diagram: 08/15/19 22:00 08/15/19 22:00 Medical Decision Making - Medical Decision Making 08/15/19 21:57 33 y/o F hx of asthma, pulmonary embolism, sickle cell trait and C-sections X4, presents to the ED with 3days of lower abdominal pain. cbc, cmp, ua, upregnancy, urine culture Meds: 1L NS, 1g tylenol for pain UA: unremarkable cbc: mild anemia Hb 10.1 08/15/19 22:48 08/15/19 23:35 Bun/CR wnl pt sent for CT abdomen and pelvis with IV contrast. 08/16/19 00:46 IMPRESSION: Mild nonspecific periportal edema can be correlated with LFTs Possible mild cystitis can be correlated with urinalysis. Diastases recti and small fat-containing umbilical hernia. Pt. feeling better after receiving tylenol and fluids. 08/16/19 05:24 Pt discharged with follow up to primary care. Equally given copy of Ct results. *DC/Admit/Observation/Transfer Diagnosis at time of Disposition: Abdominal pain Qualifiers: Abdominal location: lower abdomen, unspecified Qualified Code(s): R10.30 - Lower abdominal pain, unspecified - Discharge Dispostion Disposition: HOME Condition at time of disposition: Stable Decision to Admit order: No - Prescriptions Prescriptions: Naproxen 500 mg PO BID 5 Days #10 tablet - Referrals - Patient Instructions Printed Discharge Instructions: DI for Abdominal Pain-Adult Additional Instructions: you were seen in the ER for abdominal pain. return to the ER if you experience increasing pain, fevers, chills or any symptoms today feel worse. You can take over the counter medications at home for relief. Follow up with your primary care provider, you have been given a copy of your CT report. - Post Discharge Activity
[2019-08-15] MEDS ORDERED: SODIUM CHLORIDE 0.9% 1000 ML INFUS.BAG IV ONE (20:35)
[2019-08-15] MEDS ORDERED: ACETAMINOPHEN 1000 MG/100 ML VIAL (NON FORMULARY) IVPB ONE (20:35)
[2019-08-15] MEDS ORDERED: ONDANSETRON 4 MG/2 ML VIAL IVPUSH ONE (20:35)
[2019-08-15 21:40] LABS: URINE APPEARANCE CLEAR; URINE BILIRUBIN NEGATIVE (NEGATIVE); URINE COLOR YELLOW; URINE GLUCOSE (UA) NEGATIVE (NEGATIVE); URINE KETONE NEGATIVE (NEGATIVE); URINE LEUK ESTERASE NEGATIVE (NEGATIVE); URINE NITRITE NEGATIVE (NEGATIVE); URINE PROTEIN NEGATIVE (NEGATIVE); URINE UROBILINOGEN 0.2 mg/dL (0.2-1.0)
[2019-08-15] MEDS ORDERED: ACETAMINOPHEN INJECTION 100 ML IVPB ONE (21:56)
[2019-08-15] MEDS ORDERED: ONDANSETRON 4 MG/2 ML VIAL ONE (21:57)
[2019-08-15 22:26] LABS: BASO % 0.7 % (0-2.0); EOS % 2.3 % (0-4.5); HEMATOCRIT 30.8 % (32.4-45.2); HEMOGLOBIN 10.1 GM/dL (10.7-15.3); LYMPH % 33.3 % (8-40); MCH 26.8 pg (25.7-33.7); MCHC 32.7 g/dl (32.0-36.0); MEAN PLT VOLUME 8.8 fl (7.5-11.1); MONO % 6.2 % (3.8-10.2); NEUT % 57.5 % (42.8-82.8); PLATELET COUNT 316 K/MM3 (134-434); RBC 3.76 M/mm3 (3.60-5.2); RDW 16.9 % (11.6-15.6); WHITE BLOOD COUNT 7.3 K/mm3 (4.0-10.0)
[2019-08-15 23:14] LABS: ALBUMIN 3.8 g/dl (3.4-5.0); ALK PHOS 99 U/L (45-117); ANION GAP 7 MMOL/L (8-16); BILIRUBIN,TOTAL 0.4 mg/dL (0.2-1); BLOOD UREA NITROGEN 12.7 mg/dL (7-18); CALCIUM 8.8 mg/dL (8.5-10.1); CHLORIDE 106 mmol/L (98-107); CO2 26 mmol/L (21-32); CREATININE 0.8 mg/dL (0.55-1.3); GLUCOSE,RANDOM 85 mg/dL (74-106); POTASSIUM 3.8 mmol/L (3.5-5.1); SGOT/AST 10 U/L (15-37); SGPT/ALT 14 U/L (13-61); SODIUM 140 mmol/L (136-145); TOT PROT 7.4 g/dl (6.4-8.2)
[2019-08-15 23:33] VITALS: BP 118/72; PULSE 75; TEMP 98
--- NOTE | 2019-08-16 01:42 | PDOC ---
Documentation entered by Alejo Villasenor SCRIBE, acting as scribe for Jero Zavala MD. Jero Zavala MD: This documentation has been prepared by the Jacklyn spencer Nirvannie, SCRIBE, under my direction and personally reviewed by me in its entirety. I confirm that the documentation accurately reflects all work, treatment, procedures, and medical decision making performed by me. Attending Attestation - Resident Resident Name: Brody Peterson - ED Attending Attestation I have performed the following: I have examined & evaluated the patient, The case was reviewed & discussed with the resident, I agree w/resident's findings & plan - HPI HPI: 08/15/19 23:14 CC: Abdominal pain. HPI: The patient is a year old female, with a significant past medical history of PE and asthma, who presents to the emergency department with, 3 days of lower quadrants abdominal pain described as a sharp, crampy pain with radiation to the upper abdomen. She denies recent chest pain or shortness of breath. Allergies: NKDA - Physicial Exam PE: 08/16/19 00:47 Exam: Vitals: Triage Vital signs reviewed General Appearance: no acute distress, well nourished well developed, Head: Atraumatic, normocephalic Neck: Supple;No Nuchal rigidity Chest Wall: Nontender Cardiac: Regular rate and rhythm, no murmurs, no rubs, no gallops, Lungs: Clear to auscultation bilateral, good air movement bilaterally, Abdomen: Soft, nondistended, normal bowel sounds, +diffuse lower abdominal pain. Rectal: Exam deferred Extremities: Full range of motion to all extremities, no cyanosis, clubbing, or edema Skin: Warm and dry, no rashes or lesions, no petechiae Neuro: AOX3; Cranial Nerves 2-12 grossly intact, Strength intact to all extremities, Sensation intact to all extremities Psych: normal mood, normal affect - Medical Decision Making 08/16/19 02:14 3 day history of lower abdominal discomfort no fever no white count CAT scan with no acute findings history examination consistent with abdominal pain unspecified etiology no indication of acute abdomen at this time patient feels better after fluids and Tylenol Findings, the need for follow-up, strict return instructions discussed with patient.
== END 2019-08-16 01:09 | disposition home or self-care (01) ==
LOC: JER 17:50
PROC: 3E033NZ Introduction of Analgesics, Hypnotics, Sedatives into Peripheral Vein, Percutaneous Approach (ICD-10-PCS; principal; 2019-08-15)
PROC: 3E0337Z Introduction of Electrolytic and Water Balance Substance into Peripheral Vein, Percutaneous Approach (ICD-10-PCS; 2019-08-15)
PROC: 3E033GC Introduction of Other Therapeutic Substance into Peripheral Vein, Percutaneous Approach (ICD-10-PCS; 2019-08-15)
DX: R10.30 Lower abdominal pain, unspecified (principal); J45.909 Unspecified asthma, uncomplicated; D57.3 Sickle-cell trait; Z86.711 Personal history of pulmonary embolism
CPT/HCPCS: 36415; 74177-TC; 80053; 81003; 84702; 84703; 85025; 87086; 99284-25; J0131; J7030

== ENCOUNTER 2020-11-19 21:22 | Emergency (ER) | payer OTHER ==
[~2020-11-19 21:22] MED LIST: CYCLOBENZAPRINE HCL 5 MG TABLET PO ONE
[2020-11-19 21:33] VITALS: BP 108/69; PULSE 74; TEMP 98.5; BMI 28.3
[2020-11-19] MEDS ORDERED: LIDOCAINE 5% TOPICAL PATCH TP ONE (22:52)
[2020-11-20] MEDS ORDERED: LIDOCAINE 5% TOPICAL PATCH ONE (00:07)
[2020-11-20] MEDS ORDERED: CYCLOBENZAPRINE HCL 10 MG TABLET (FP) ONE (00:07)
[2020-11-20] MEDS ORDERED: LIDOCAINE PATCH REMOVAL MC SCH (11:00)
[2020-11-20] MEDS ORDERED: CYCLOBENZAPRINE HCL 5 MG TABLET PO ONE (20:50)
== END 2020-11-20 01:08 | disposition home or self-care (01) ==
LOC: JER 21:22
DX: M54.5 Low back pain (principal); M62.838 Other muscle spasm
CPT/HCPCS: 99284-25